=== PATIENT | male | born 1960 | race Caucasian/White ===

== ENCOUNTER → 2017-06-16 | Outpatient (CLI) | payer OTHER ==
[~2017-06-16] MED LIST: ALLOPURINOL 10100 M1 PO; ASPIR 8181 MG PO; FLAGYL500 MG PO; FOLIC ACID1 MG PO; HYDROCODON-ACE1 EAC7 PO; LEVAQUIN 750 M750 MG PO; LIPITOR10 MG; LISINOPRIL30 MG; METOPROLOL SUCC50 MG; MULTIVITAMINS1 EAC7 PO; VITAMIN B-1100 M1 PO; ZOFRAN4 MG PO
== END ==
LOC: M.CT 10:29
DX: I65.23 Occlusion and stenosis of bilateral carotid arteries (principal)

== ENCOUNTER 2017-09-05 06:08 | Inpatient (IN) | payer OTHER ==
[~2017-09-05] VITALS: Ht 185.4 cm; Wt 97.5 kg
[2017-09-05] VITALS (8 sets, daily range): BP systolic 82–164; BP diastolic 41–89
[~2017-09-05 06:08] MED LIST changes: -ASPIR 8181 MG PO; -FOLIC ACID1 MG PO; -MULTIVITAMINS1 EAC7 PO; -VITAMIN B-1100 M1 PO
[2017-09-05 06:33] LABS: ABSOLUTE BASOPHILS 0.1 thou/uL (0.0-0.2); ABSOLUTE EOSINOPHILS 0.2 thou/uL (0.0-0.7); ABSOLUTE LYMPHOCYTES 2.2 thou/uL (0.8-5.3); ABSOLUTE MONOCYTES 0.7 thou/uL (0.0-1.2); ABSOLUTE NEUTROPHILS 8.4 thou/uL (1.6-8.1); EOSINOPHILS 1.4 %; HEMATOCRIT 43.2 % (42.0-52.0); HEMOGLOBIN 14.7 gm/dL (14.0-18.0); LYMPHOCYTES 18.7 %; MCH 32.3 pg (26.0-34.0); MPV 8.1 fl. (7.2-11.1); NUCLEATED RBCS 0 /100WBC; PLATELET COUNT* 192 thou/uL (150-400); POLYS 72.9 %; RBC 4.55 mil/uL (4.50-6.00); RDW-CV 13.6 % (10.5-14.5); WBC 11.5 thou/uL (4.0-11.0)
[2017-09-05 06:45] LABS: CALCIUM 9.1 mg/dL (8.5-10.1); CREATININE 1.2 mg/dL (0.6-1.3); POTASSIUM 4.2 mmol/L (3.5-5.1)
[2017-09-06] VITALS (7 sets, daily range): BP systolic 89–96; BP diastolic 43–56
[2017-09-06 07:33] LABS: HEMATOCRIT 34.1 % (42.0-52.0); MCH 32.1 pg (26.0-34.0); MCHC 33.4 g/dL (28.0-37.0); MPV 9.1 fl. (7.2-11.1); RBC 3.55 mil/uL (4.50-6.00); RDW-CV 13.8 % (10.5-14.5); WBC 13.3 thou/uL (4.0-11.0)
[2017-09-06 07:35] LABS: HEMOGLOBIN 11.4 gm/dL (14.0-18.0)
[2017-09-06 07:37] LABS: CALCIUM 7.7 mg/dL (8.5-10.1); CREATININE 1.2 mg/dL (0.6-1.3); POTASSIUM 4.4 mmol/L (3.5-5.1)
[2017-09-06 07:44] LABS: ALBUMIN 2.9 g/dL (3.4-5.0); MAGNESIUM 1.6 mg/dL (1.8-2.4); PHOSPHORUS* 3.8 mg/dL (2.5-4.9); TOTAL PROTEIN 5.9 g/dL (6.4-8.2)
[2017-09-06] MEDS ORDERED: ASPIR 8181 MG PO (12:27)
[2017-09-06] MEDS ORDERED: MULTIVITAMINS1 EAC7 PO (12:28)
[2017-09-06] MEDS ORDERED: FOLIC ACID1 MG PO (12:29)
[2017-09-06] MEDS ORDERED: VITAMIN B-1100 M1 PO (12:29)
--- NOTE | 2017-09-07 11:27 | OP ---
[facility] [address] [place] [address] OPERATIVE REPORT Name: CHARLY HARLEY Room: [address] IN M.R.#: [id number] Admission: 09/05/17 Attend Phys: Bianka Loza Discharge: 09/06/17 Date of : 60 Report #: [id number] THIS REPORT FOR: //name// CC: Levi Abdi DATE OF SERVICE: 09/05/2017 PREOPERATIVE DIAGNOSIS: Asymptomatic high-grade right carotid artery stenosis. POSTOPERATIVE DIAGNOSIS: Asymptomatic high-grade right carotid artery stenosis. OPERATION: 1. Right carotid endarterectomy with bovine pericardial patch angioplasty. 2. Completion intraoperative duplex. SURGEON: Levi Dang DO. AIRFIELD MANAGER: MADELEINE Gross. ANESTHESIA: General. ESTIMATED BLOOD LOSS: 100 mL FLUIDS: 800 mL crystalloid. URINE OUTPUT: None. SPECIMENS: Right carotid plaque. COMPLICATIONS: None. IMPLANTS: This was a 0.8 x 8 bovine pericardial patch on right carotid artery. FINDINGS: The patient had about an 80% heavily calcified right internal carotid artery stenosis. Completion duplex demonstrated no intraluminal defects. He had good flow through the external carotid artery. Continuous diastolic flow through the internal carotid artery. He woke up neurologically intact, moving all extremities appropriately. CLINICAL HISTORY: The patient is a 57-year-old man who was found to have high-grade right carotid artery stenosis, he is asymptomatic from this, presented today for elective intervention. DETAILS OF PROCEDURE: After informed consent was obtained, the patient was [facility] [address] [place] [address] OPERATIVE REPORT Name: CHARLY HARLEY Room: [address] IN .R.#: [id number] Admission: 09/05/17 Attend Phys: Bianka Loza Discharge: 09/06/17 Date of : 60 Report #: [id number] taken to the operating room and placed on the OR bed in supine position. He was administered general anesthesia by anesthesia team. Right neck was prepped and draped in usual sterile fashion. Full timeout was performed, identifying correct patient and procedure. Next, longitudinal incision was made along the anterior border of sternocleidomastoid of the right neck. Dissection was carried down through skin and subcutaneous tissues, both sharply and with electrocautery. Platysma was divided. The carotid sheath was entered. The facial vein was isolated and ligated between silk ties and divided. The jugular vein and vagus nerve were kept in the posterior lateral position. I then circumferentially dissected out the common carotid artery, controlled this with an umbilical tape and Rumel tourniquet. I then dissected out the external carotid artery and controlled this with Silastic vessel loops in Phillips fashion. I then dissected out the distal internal carotid artery and controlled with Silastic vessel loop. At this point, I administered 8000 units of intravenous heparin. This was allowed to circulate for 3 minutes. I then sequentially clamped the internal carotid, followed by the external common carotid arteries. I then made an arteriotomy, extended with Phillips scissors, on to normal internal carotid artery and common carotid artery. I placed a 12-Qatari [place] shunt in standard fashion. Doppler interrogation confirmed flow through the shunt. I then performed a standard endarterectomy with eversion endarterectomy of the external carotid artery. I then did a patch angioplasty with a bovine pericardial patch with running 6-0 Prolene suture. Prior to completion of the suture line, the shunt was removed and the carotid sequentially reclamped, flushed with heparinized saline. I then completed the patch, restored flow first at the external carotid artery and after several heartbeats, at the internal carotid artery. At this point, I then performed completion intraoperative duplex. This demonstrated no intraluminal defects, good flow through the external carotid artery and continuous diastolic flow through the internal carotid artery. At this point, I then administered 50 mg of protamine to partially reverse the heparin. Once hemostasis was ensured in the wound, it was irrigated with antibiotic solution, was closed in layers with 2-0 and 3-0 Vicryl. Local anesthetic was infiltrated in skin and subcutaneous tissues. Skin was closed with 4-0 Monocryl. Dermabond was applied. All sponge, sharp and instrument counts reported correct x 2. He tolerated the procedure well and was transferred to recovery in stable condition. He woke up neurologically intact, moving upper and lower extremities appropriately. <ELECTRONICALLY SIGNED> By: Levi Dang DO 09/07/17 1127 1037 [id number] Dang DO /nt
--- NOTE | 2017-09-07 13:12 | S ---
[address] [address] SURGICAL PATH RPT PROCEDURE Name: CHERRICHARLY Bianka Room: [address] IN M.R.#: [id number] Admission: 09/05/17 Date of : 60 Discharge: 09/06/17 Report #: [id number] Path Case #: [id number] PATHOLOGY REPORT COLLECTION DATE: 09/05/2017 RECEIVED DATE: 09/05/2017 SUBMITTING PHYS: Dr. Levi Dang OTHER PHYS: Dr. Phani Medley SPECIMEN(S) RECEIVED: A.Right carotid artery plaque * * * * * * * * * * * * FINAL DIAGNOSIS: Right carotid artery plaque: - Fibrointimal atherosclerotic plaque with calcification. (JARRELL:niraj; 09/07/2017) PATHOLOGIST: Fabrice Kong M.D. REPORT ELECTRONICALLY SIGNED BY: Fabrice Kong M.D. DATE/TIME: 09/07/2017 13:12 * * * * * * * * * * * * GROSS PATHOLOGY: The specimen is received in formalin, labeled "Charly Palomares and right carotid artery plaque", is a yellow-alvarez, previously-opened, focally-calcified, tubular segment measuring 2.5 cm in length and 1.0 cm in diameter. Glove Parts Inspector sections submitted in A1, after decalcification. (SWS; 09/05/2017) CLINICAL HISTORY: Right carotid stenosis INITIAL CPT CODE(S): A; 73300, 90923 Professional services performed by [facility] at [facility], [address] [place] [address]. Technical services performed by [facility] at [address] [place] [address], [address], [place], [place] [address]. [facility] [address] [address] [place] [address] SURGICAL PATH RPT PROCEDURE Name: CHARLY PALOMARES Room: [address] IN M.[place].#: [id number] Admission: 09/05/17 Date of : 60 Discharge: 09/06/17 Report #: [id number] Path Case #: [id number] [place] [address] PHONE: [phone] DIRECTOR: Agus Mendoza M.D. * * * END OF REPORT * * *
== END 2017-09-06 13:48 | disposition home or self-care (01) | DRG 26 ==
LOC: M.ICU 06:08 → M.TBA 06:08 → M.PRE 10:14 → M.ICU 12:36 → M.PRE 15:50 → M.ICU 09-06 12:25
PROVIDERS: Family Medicine; Internal Medicine; ADMIT Internal Medicine
PROC: 03CK3ZZ Extirpation of Matter from Right Internal Carotid Artery, Percutaneous Approach (ICD-10-PCS; principal; 2017-09-05)
PROC: 03UK3JZ Supplement Right Internal Carotid Artery with Synthetic Substitute, Percutaneous Approach (ICD-10-PCS; principal; 2017-09-05)
DX: I65.21 Occlusion and stenosis of right carotid artery (principal); E44.0 Moderate protein-calorie malnutrition; E87.1 Hypo-osmolality and hyponatremia; I10 Essential (primary) hypertension; E78.5 Hyperlipidemia, unspecified; F10.920 Alcohol use, unspecified with intoxication, uncomplicated; F17.210 Nicotine dependence, cigarettes, uncomplicated; Z68.28 Body mass index [BMI] 28.0-28.9, adult; Z88.0 Allergy status to penicillin; Z88.8 Allergy status to other drugs, medicaments and biological substances; Z82.49 Family history of ischemic heart disease and other diseases of the circulatory system

== ENCOUNTER → 2020-06-26 | Outpatient (CLI) | payer BC ==
[~2020-06-26] MED LIST changes: +ASPIR 8181 MG PO; +FOLIC ACID1 MG PO; +MULTIVITAMINS1 EAC7 PO; +VITAMIN B-1100 M1 PO
== END ==
LOC: M.CT 09:42 → M.LAB 10:00 → M.CT 11:00
PROVIDERS: ATTEND Internal Medicine
DX: K57.30 Diverticulosis of large intestine without perforation or abscess without bleeding (principal); K86.1 Other chronic pancreatitis; J32.0 Chronic maxillary sinusitis; N28.1 Cyst of kidney, acquired; I70.0 Atherosclerosis of aorta; N42.0 Calculus of prostate

== ENCOUNTER → 2021-02-19 | Outpatient (CLI) | payer OTHER ==
--- NOTE | 2021-02-19 17:21 | CARDNUC ---
[place] [address] CARDIAC NUCLEAR IMAGING REPORT Name: CHERRICHARLY Room: [facility]#: [id number] Admission: 02/19/21 Attend Phys: Myron Mcgovern, Discharge: Date of : 60 Date of Service: 02/19/21 1721 Report #: [id number] THIS REPORT FOR: cc: Delvis Medley MD,Myron Thao MD [facility] ~ APPROVED REPORT Imaging Protocol: Rest Tc-99m/Stress Tc-99m 1 day Study performed: 02/19/2021 11:13:01 Indication: Chest pain Patient Location: Out-Patient Stress Nurse: VIOLET Mane Tech:CHRIS Lott Ht: 6 ft 1 in Wt: 209 lbs BSA: 2.19 m2 BMI: 27.57 Medical History Medical History: CAD non obstructive, Current Smoker, HTN, Hyperlipidemia, Carotid artery disease Medications: atorvastatin, lisinopril, metoprolol, verapamil Allergies: tricor, zocor, niacin Cardiac Risk Factors: Age, Current Smoker, HTN, Hyperlipidemia Exercise History: Indeterminate Meds Held (24 hrs): metoprolol Resting Data Rest SPECT myocardial perfusion imaging was performed in supine position 30 minutes following the intravenous injection of 9.8 mCi of Tc-99m Sestamibi. Time of rest injection: 1005 Date: 02/19/2021 The images were gated to evaluate regional wall motion and calculate left ventricular ejection fraction. Administration Route: IV Exercise Stress At peak stress, the patient was injected intravenously with 34.2mCi of Tc-99m Sestamibi. Time of stress injection: 1115 Date: 02/19/2021 Administration Route: [place] [address] CARDIAC NUCLEAR IMAGING REPORT Name: CHARLY HARLEY Room: [facility]#: [id number] Admission: 02/19/21 Attend Phys: Myron Mcgovern, Discharge: Date of : 60 Date of Service: 02/19/21 1721 Report #: [id number] Gated Stress SPECT was performed 30 minutes after stress injection. The images were gated to evaluate regional wall motion and calculate left ventricular ejection fraction. Prone imaging was performed. Stress Test Details Stress Test: Pharmacologic stress testing performed using 0.4 mg of regadenoson per 5 mL given IV over 10 seconds. HR Max Heart Rate (APMHR): 160 bpm Resting HR: 75 bpm Target HR (85% APMHR): 136 bpm Max HR Achieved: 85 bpm % of APMHR: 53 Recovery HR: 82 bpm BP Resting BP: 146/93 mmHg Max BP: 160/93 mmHg Recovery BP: 138/88 mmHg ECG Resting ECG: Sinus Rhythm Stress ECG: Sinus Rhythm ST Change: None Arrhythmia: None Recovery ECG: Sinus Rhythm Recovery ST Change: None Recovery Arrhythmia: None Clinical Reason for Termination: Completed protocol The patient tolerated Lexiscan infusion without significant cardiac symptoms. Nurse Comments Pt states that he failed to reach target heart rate on treadmill a few years agp and does not feel that he can do treadmill today Stress ECG Conclusion The baseline twelve-lead EKG shows sinus rhythm without significant ST segment or T wave abnormality. EKGs obtained during and post Lexiscan infusion shows sinus rhythm with no significant ST segment changes when compared to baseline. There were [place] [address] CARDIAC NUCLEAR IMAGING REPORT Name: CHARLY HARLEY Room: [facility]#: [id number] Admission: 02/19/21 Attend Phys: Myron Mcgovern, Discharge: Date of : 60 Date of Service: 02/19/21 1721 Report #: [id number] Study Quality Study: Excellent Artifact: No artifact Study Data At rest, the left ventricular ejection fraction was 54%.. Post stress, the left ventricular ejection was 52%.. TID = 1.02. Perfusion There is a small in size moderate intensity reversible apical defect noted. No other significant fixed or reversible defects were noted. Wall Motion Normal left ventricular wall motion. Nuclear Conclusion ECG Findings: negative for ischemia Clinical Findings: negative for ischemia Nuclear Findings: positive for ischemia Exercise Capacity: not assessed Left Ventricular Function: normal Risk Study: moderate Perfusion images suggest apical ischemia. Global LV systolic function is preserved. This is a moderate risk study. <Conclusion> The baseline twelve-lead EKG shows sinus rhythm without significant ST segment or T wave abnormality. EKGs obtained during and post Lexiscan infusion shows sinus rhythm with no significant ST segment changes when compared to baseline. There were no stress-induced arrhythmias. <ELECTRONICALLY SIGNED> By: Myron Mcgovern MD, [facility] 02/19/211720 20 20 Myron Mcgovern MD, FACC /INF
== END ==
LOC: M.NUC 02-11 13:26 → M.CRD 02-16 09:00 → M.NUC 02-16 10:00
PROVIDERS: ATTEND Internal Medicine Cardiovascular Disease
DX: I70.90 Unspecified atherosclerosis (principal); R07.2 Precordial pain

== ENCOUNTER → 2021-02-25 | Outpatient (CLI) | payer OTHER ==
[~2021-02-25] VITALS: Ht 182.9 cm; Wt 95.3 kg
[2021-02-25] VITALS (7 sets, daily range): BP systolic 117–141; BP diastolic 73–85
[~2021-02-25] MED LIST changes: +ALLOPURINOL 30300 M1 PO; +ANUSOL-HC25 MG RECTAL; +CALCIUM 600+D31 EACH PO; +EMU-LAC HYDRAT120 ML TOP; +FOSAMAX 70 MG T70 MG PO; +LIPITOR20 MG PO; +NOXIFOL-D32500 UNIT PO; +TOPROL XL100 MG PO; +VERAPAMIL ER120 MG PO; +ZESTRIL30 MG PO
[2021-02-25 12:19] LABS: HEMATOCRIT 44.2 % (42.0-52.0); HEMOGLOBIN 14.9 gm/dL (14.0-18.0); MCH 31.8 pg (26.0-34.0); MCHC 33.7 g/dL (28.0-37.0); MCV 94.4 fL (80.0-100.0); RBC 4.68 mil/uL (4.50-6.00); RDW-CV 14.8 % (10.5-14.5); WBC 5.3 thou/uL (4.0-11.0)
[2021-02-25 12:31] LABS: APTT 26.9 Seconds (25.0-31.3); PROTIME 10.9 Seconds (9.20-11.50)
[2021-02-25 12:34] LABS: ALKALINE PHOSPHATASE 162 U/L (46-116); ANION GAP 7 mmol/L (7-16); BUN 10 mg/dL (7-18); CALCIUM 9.1 mg/dL (8.5-10.1); CHLORIDE 94 mmol/L (98-107); CHOLESTEROL 107 mg/dL (<200); CO2 31 mmol/L (21-32); CREATININE 1.2 mg/dL (0.6-1.3); GLUCOSE 93 mg/dL (70-99); HDL CHOLESTEROL 36 mg/dL (>40); LDL CHOLESTEROL 54 mg/dL (<100); POTASSIUM 4.2 mmol/L (3.5-5.1); SGOT 46 U/L (15-37); SGPT 50 U/L (30-65); SODIUM 132 mmol/L (136-145); TOTAL BILIRUBIN 2.5 mg/dL (<0.1-1.0); TOTAL PROTEIN 8.2 g/dL (6.4-8.2); TRIGLYCERIDE 88 mg/dL (<150); VLDL 18 mg/dL (<40)
[2021-02-25 12:36] LABS: SERUM ASSESSMENT Clear
--- NOTE | 2021-02-25 14:24 | EKG ---
[place] [address] ELECTROCARDIOGRAM REPORT Name: CHARLY HARLEY Room: [facility]#: [id number] Admission: 02/25/21 Attend Phys: Myron Mcgovern, Discharge: Date of : 60 Date of Service: 02/25/21 1250 Report #: [id number] THIS REPORT FOR: //name// [facility] Test Date: 2021-02-25 Test Time: 12:50:21 Pat Name: CHARLY HARLEY Department: Room: Gender: M Manager Nuclear: : 1960 Requested By: Myron Mcgovern Order Number: [id number] Reading MD: Chao Sprague Measurements Intervals [place] Rate: 71 P: 77 MD: 185 QRS: 77 QRSD: 94 T: 76 QT: 367 QTc: 399 Interpretive Statements Sinus rhythm LAE, consider biatrial enlargement Probable left ventricular hypertrophy Abnormal T, consider ischemia, anterior leads Artifact in lead(s) I,II,III,aVR,aVL,aVF,V1,V2,V3,V4,V5,V6 Compared to ECG 05/06/2017 05:51:06 T-wave abnormality now present Possible ischemia now present ST (T wave) deviation now present Electronically Signed On 02-25-2021 14:24:21 CDT by Chao Sprague [email or web address] <ELECTRONICALLY SIGNED> By: Chao Sprague MD, [facility] 02/25/21 1424 1250 1250 Chao Sprague MD, [facility] /EPI
--- NOTE | 2021-02-25 16:36 | CARD ---
[address] [address] CARDIAC CATH REPORT Name: CHARLY HARLEY [id number] Admission: 02/25/21 Attend Phys: Myron Mcgovern MD Discharge: Date of : 60 Report #: [id number] THIS REPORT FOR: cc: Delvis Medley MD, Dean L. MD List[place], Michael J. MD [facility] ~ APPROVED REPORT Study performed: 02/25/2021 13:50:38 Patient Details Patient Status: Out-Patient Room #: Event Personnel Manager Administration- Myron Mcgovern, RN- Evan Castillo, Scrub- Jr Mcdowell, Monitor- Devora Cervantes Procedures Performed Access- Right Femoral Artery, C w/wo coronaries, Hemostasis- Mynx Indication Positive stress test, Chest pain Risk Factors Hypercholesterolemia, Hypertension, Tobacco History () Procedure Narrative The patient was brought electively to the Cardiac Catheterization Laboratory and was prepped and draped in a sterile manner. The right femoral was infiltrated with 2% Lidocaine subcutaneous anesthesia. IV conscious sedation was used throughout procedure with appropriate monitoring and was performed in the presence of a registered nurse who was an independent trained observer other than the physician performing the procedure. A [address] sheath was inserted into the right femoral artery. Coronary angiography was performed using coronary diagnostic catheters. The right coronary system was accessed and visualized with a Diagnostic 6 Fr JR 4 catheter. The left coronary system was accessed and visualized with a Diagnostic 6 Fr JL 4 catheter. The left ventricle was accessed and visualized with a Diagnostic 6 Fr Pigtail catheter. Left ventricular/Aortic Valve gradient assessed via catheter pullback. Left ventriculogram was performed in KEYES projection. Pre-demployment femoral angiogram was performed . Closure device was deployed with a Fr 6/7 [place] [address] CARDIAC CATH REPORT Name: CHARLY HARLEY Room: [facility]#: [id number] Admission: 02/25/21 Attend Phys: Myron Mcgovern MD Discharge: Date of : 60 Report #: [id number] patient tolerated the procedure well and there were no complications associated with the procedure. There was no hematoma. Intraoperative Conscious Sedation Sedation start time: 14:27 Case end Time: 14:34 Fentanyl 25.0 mcg Versed 1.0 mg Fluoro Time: 1.3 minutes Dose: DAP 50027 cGycm2 504 mGy Contrast Type and Amount: Omnipaque 80 ml Diagnostic Cath Left Main The left main coronary artery is normal and bifurcates into a left anterior descending and circumflex coronary artery. LAD The left anterior descending coronary artery is normal in its proximal to mid distal portion. Diagonal 1 A large transverse diagonal branch is normal. Diagonal 2 A small second diagonal branch is normal. Circumflex The circumflex left coronary artery is normal in its proximal mid and distal portion. OM1 A large first obtuse marginal mentions normal. OM2 A tiny second obtuse marginal branch is normal. Right Coronary The right coronary artery is normal in the proximal mid and distal portion. R PDA A large right PDA is normal. RPLV A large and branch right posterior lateral branch is normal. Left Ventriculography The left ventricle is normal in size with normal contractility. The left ventricular ejection fraction is estimated to be 60%. Hemodynamics The aortic pressure is 132/69 mmHg with a mean of 62 mmHg. The left ventricular pressure is 124/8 mmHg with a mean of mmHg. The left ventricular end diastolic pressure is 14 mmHg. Conclusion 1. Normal coronary arteries. 2. Normal left ventricular end-diastolic pressure. 3. Normal left-[place] [address] CARDIAC CATH REPORT Name: CHARLY HARLEY Room: [facility]#: [id number] Admission: 02/25/21 Attend Phys: Myron Mcgovern MD Discharge: Date of : 60 Report #: [id number] Recommendations 1. Continue medical management and risk factor modification. <ELECTRONICALLY SIGNED> By: Myron Mcgovern MD, [facility] 02/25/21 1636 1636 [id number] Mcgovern MD, FACC /INF
== END | disposition home or self-care (01) ==
LOC: M.CL 05:36
PROVIDERS: ATTEND Internal Medicine Cardiovascular Disease
DX: R07.9 Chest pain, unspecified (principal); R94.39 Abnormal result of other cardiovascular function study; I10 Essential (primary) hypertension; E78.00 Pure hypercholesterolemia, unspecified; F17.210 Nicotine dependence, cigarettes, uncomplicated; E78.5 Hyperlipidemia, unspecified; Z98.890 Other specified postprocedural states; Z79.899 Other long term (current) drug therapy; Z88.0 Allergy status to penicillin; Z88.8 Allergy status to other drugs, medicaments and biological substances; Z20.822 Contact with and (suspected) exposure to COVID-19

== ENCOUNTER → 2021-03-03 | Outpatient (CLI) | payer OTHER | LOC: M.ULTRA 16:30 | PROVIDERS: ATTEND Internal Medicine Cardiovascular Disease | DX: R19.09 Other intra-abdominal and pelvic swelling, mass and lump (principal); R10.31 Right lower quadrant pain ==